=== PATIENT | female | born 1965 | race Hispanic/Latino ===

== ENCOUNTER 2020-01-25 19:03 | Inpatient (IN) | payer OTHER, SELFPAY ==
--- NOTE | ~2020-01-25 | XR_ITS ---
EXAMINATION: XR chest 1V portable DATE: 01/25/2020 21:25 INDICATION: Fever TECHNIQUE: frontal view of the chest was obtained. COMPARISON: None FINDINGS: Patchy airspace opacities throughout both lungs with lower lung predominance. Linear discoid atelecta sis in the left upper lung zone. No pleural effusion or pneumothorax. Mild cardiomegaly. IMPRESSION: 1. Bilateral lower lung predominant patchy airspace opacities which could represent pneumonia, pulmon grant edema, atelectasis or some combination thereof. 2. Mild cardiomegaly. Reviewed, dictated and finalized at location A. IMPRESSION: 1. Bilateral lower lung predominant patchy airspace opacities which could repre sent pneumonia, pulmonary edema, atelectasis or some combination thereof. 2. Mild cardiomegaly.
--- NOTE | ~2020-01-25 | CT_ITS ---
EXAMINATION: CT abdomen pelvis w con DATE: 01/25/2020 21:28 INDICATION: Abdominal pain and fever TECHNIQUE: Computed tomography (CT) of the abdomen and pelvis was performed with 100 mL Omnipaque-350 intravenous contrast. Automated exposure control and iterative reconstruction technique were employe d. The dose-length product was 343.45 mGy-cm. COMPARISON: None FINDINGS: Patchy groundglass opacities at the bilateral lung bases which could represent pneumonia or pulmonary edema. Bronchiectasis and mild discoid atelectasis in the posterior right middle lobe along the wilberto r fissure. Mild cardiomegaly. No pericardial or pleural effusion. 1.4 cm cyst at the dome of the live r and second 8 mm cyst at the right hepatic lobe. Gallbladder, spleen, pancreas, bilateral adrenal gl ands and kidneys are normal. Bowels including the appendix are normal. Bladder, retroverted, retrofle xed uterus are normal. 2.8 cm likely cystic lesion at the left adnexa with greater than simple fluid attenuation. No free intraperitoneal gas or fluid. No pathologically enlarged abdominal or pelvic lym phadenopathy. Mild scattered degenerative skeletal changes. IMPRESSION: 1. Patchy groundglass opacities in the bilateral lower lungs which could represent pneumonia includin g atypical pneumonia such as COVID-19 or pulmonary edema. 2. Mild cardiomegaly. 3. Indeterminate 2.8 cm likely cystic lesion at the left adnexa with slightly greater than simple flu id attenuation possibly hemorrhagic cyst. Recommend pelvic ultrasound for further evaluation. Reviewed, dictated and finalized at location A. IMPRESSION: 1. Patchy groundglass opacities in the bilateral lower lungs which could repres ent pneumonia including atypical pneumonia such as COVID-19 or pulmonary edema. 2. Mild cardiomegaly. 3. Indeterminate 2.8 cm likely cystic lesion at the left adnexa with slightly g reater than simple fluid attenuation possibly hemorrhagic cyst. Recommend pelvi c ultrasound for further evaluation.
[2020-01-25 19:13] VITALS: BP 122/79; PULSE 83; RESP 33; TEMP 37.9; O2SAT 97
--- NOTE | 2020-01-25 19:20 | ED.FEVER ---
HPI - Fever General Chief Complaint: Fever Stated Complaint: fever Time Seen by Provider: 01/25/20 19:20 History of Present Illness HPI Narrative: Low Grade fever for the past week. Associated with diarrhea and diffuse abdominal pain. No nausea, vomiting, dark stool, cough, congestion, chest pain, SOB. She has never had this before. No active medical problems, No prior abdominal surgery. History somewhat limited by language barrier. Related Data Home Medications Medication Instructions Recorded Confirmed No Home Medications 01/25/20 01/25/20 Allergies Allergy/AdvReac Type Severity Reaction Status Date / Time No Known Allergies Allergy Verified 01/25/20 19:47 Review of Systems Review of Systems: All systems reviewed & are unremarkable except as noted in HPI and below Constitutional: Constitutional: Reports fever(s) ENT: Denies sore throat Cardiovascular: Cardiovascular: Denies chest pain Respiratory: Respiratory: Denies cough, Denies dyspnea and Denies wheezing Gastrointestinal: Gastrointestinal: Reports abdominal pain, Reports diarrhea and Denies vomiting Genitourinary: Genitourinary: Denies hematuria, Denies nocturia and Denies dysuria Integumentary/Breasts: Skin/Breast: Denies rash Neurologic: Denies dizziness and Denies weakness Endocrine: Endocrine: Denies polydipsia and Denies polyuria REPLACED BY [facility] Social History Social History (Updated 01/25/20 @ 20:20 by Estuardo Saab MD) Smoking status: Never smoker Exam Const: General: no acute distress, alert and ill appearing Orientation/consciousness: patient oriented x3 HENMT: Head: normal to inspection Neck: Neck: normal visual inspection and no lymphadenopathy Chest: Chest palpation & inspection: no tenderness Resp: Effort & Inspection: normal respiratory effort and tachypneic Auscultation: crackles bilateral Cardio: Jugular venous distension: no JVD Rate: regular rate Rhythm: regular rhythm Heart sounds: no murmurs GI: Inspection: non-distended GI Palp: Yes Soft to palpation, Yes Tenderness to palpation present (GI) (diffuse), No Guarding due to palpation present (GI) and No Rebound tenderness present Skin: General skin exam: normal color Neuro: General: patient oriented x3, moves all extremities and CN's II-XI intact bilaterally Speech: normal speech Extrem: General: no edema Psych: Appearance: well kempt Affect: normal affect Course Vital Signs Vital signs: Vital Signs Temperature 37.9 C H 01/25/20 19:13 Pulse Rate 83 01/25/20 19:13 Respiratory Rate 33 H 01/25/20 19:13 Blood Pressure 122/79 01/25/20 19:13 Pulse Oximetry 97 01/25/20 19:13 Temperature 37.1 C 01/25/20 21:42 Pulse Rate 75 01/25/20 21:42 Respiratory Rate 24 H 01/25/20 21:42 Blood Pressure 112/65 01/25/20 21:42 Pulse Oximetry 97 01/25/20 21:42 MDM - Fever MDM Narrative Medical decision making narrative: Story and imaging concerning for COVID-19. She appears ill and is at risk of decompensating quickly. I will plan to admit for observation. Differential Diagnosis Differential diagnosis: Likely gastroenteritis, community acquired pneumonia, pyelonephritis and other (COVID-19, UTI) Medical Records Attestation: I reviewed the patient's medical records. Lab Data Attestation: I reviewed the patient's lab results. Result diagrams: 01/25/20 19:47 01/25/20 19:46 Labs: Lab Results 01/25/20 01/25/20 01/25/20 Range/Units 19:46 19:46 19:47 WBC 5.7 (4.5-10.0) K/mm3 RBC 4.67 (4.2-5.4) M/mm3 Hgb 13.4 (12.0-15.0) g/dL Hct 39.7 (37.0-47.0) % MCV 85.0 (80-100) fl MCH 28.7 (26-34) pg MCHC 33.8 (32-36) g/dl RDW 13.0 (11.5-14.5) % Plt Count 127 L (150-375) k/mm3 MPV 12.4 H (7.4-10.4) fl Immature Gran % (Auto) 0.3 (0-0.5) % Neut % (Auto) 85.7 H (45.5-73.1) % Lymph % (Auto) 11.9 L (18.3-44.2) % [place] % (Auto) 1.9 L (2.6-8.5) %
[2020-01-25] MEDS: SODIUM CHLORIDE 0.9% IV 1,000 ML 999 ML IV CONT (19:48)
[2020-01-25 20:00] LABS: Basophils Percent Auto 0.2 % (0.2-1.2); Hematocrit 39.7 % (37.0-47.0); Hemoglobin 13.4 g/dL (12.0-15.0); Immature Granulocyte Absolute 0.02 K/mm3 (0.00-0.031); Immature Granulocyte Percent A 0.3 % (0-0.5); Immature Platelet Fraction Pct 11.3 % (0.9-11.2); Lymphocytes Absolute Auto 0.68 K/mm3 (0.9-3.2); Lymphocytes Percent Auto 11.9 % (18.3-44.2); Mean Corpuscular HGB Conc 33.8 g/dl (32-36); Mean Corpuscular Hemoglobin 28.7 pg (26-34); Mean Platelet Volume 12.4 fl (7.4-10.4); Monocytes Absolute Auto 0.1 K/mm3 (0.1-0.6); Monocytes Percent Auto 1.9 % (2.6-8.5); Neutrophils Absolute Auto 4.9 K/mm3 (1.3-6.7); Neutrophils Percent Auto 85.7 % (45.5-73.1); Platelet Count Result 127 k/mm3 (150-375); Red Blood Count 4.67 M/mm3 (4.2-5.4); White Blood Count 5.7 K/mm3 (4.5-10.0)
[2020-01-25 20:06] LABS: INR 1.1; Prothrombin Time 13.9 Seconds (11.1-14.7)
[2020-01-25 20:07] LABS: Partial Thromboplastin Time 41.2 SECONDS (22.3-36.8)
[2020-01-25 20:09] LABS: Lactic Acid Reflex 0.6 mmol/L (0.7-2.1)
[2020-01-25 20:13] LABS: Alanine Aminotransferase 20 U/L (4-35); Albumin Level 4.1 g/dL (3.5-5.1); Alkaline Phosphatase 80 U/L (38-126); Aspartate Amino Transferase 48 U/L (14-36); Bilirubin,Total 0.4 mg/dL (0.2-1.3); Blood Urea Nitrogen 8 mg/dL (7-17); CRP 4.1 mg/dL (<1.0); Carbon Dioxide 25 mmol/L (22-30); Chloride 102 mmol/L (98-107); Estimated CRCL calculation 75 ml/min; Estimated Glomerular Filt Rate > 60; Glucose 117 mg/dL (65-105); Lipase 101 U/L (23-300); Potassium 3.7 mmol/L (3.4-5.0); Sodium 136 mmol/L (137-145)
[2020-01-25 20:32] VITALS: BP 114/67; PULSE 75; RESP 20; O2SAT 100
[2020-01-25 20:45] VITALS: TEMP 37.2
[2020-01-25 21:00] LABS: Add Urine Microscopic? YES; Appearance Urine Clear (Clear); Bacteria Urine Trace /hpf; Bilirubin Urine Negative (Negative); Blood Urine Negative (Negative); Color Urine Yellow (Yellow); Glucose Urine UA Negative (Negative); Ketones Urine Trace mg/dL (Negative); Leukocyte Esterase Ur Negative LEU/UL (Negative); Mucus Urine Rare /lpf; Nitrate Urine Negative (Negative); Protein Urine Negative (Negative); RBC Urine 0-2 /hpf (0-2); Specific Grav Ur 1.016 (1.001-1.035); Squamous Epithelial Cell Urine Rare /hpf (Few); WBC Urine 0-3 /hpf
[2020-01-25 21:42] VITALS: BP 112/65; PULSE 75; RESP 24; TEMP 37.1; O2SAT 97
[2020-01-25 22:58] VITALS: BP 106/70; PULSE 75; RESP 20; O2SAT 99
--- NOTE | 2020-01-25 23:35 | ADMGEN ---
This patient, Jerome Wu, was admitted to [facility] Room 327-01. Patient/family oriented to hospital policies and general routines including ID bracelet, bed and alarms, visiting hours, pain management, procedures, bathroom and other care routines, personal items, smoking policy, room service/diet, and visiting hours. Valuables list has been completed. Information on how to activate the Rapid Response Team has been discussed. Patient/Family are encouraged to report perceived risks to care and to ask questions if they do not understand what they are told or what they should do.
[2020-01-25 23:42] VITALS: BP 102/71; PULSE 73; RESP 18; TEMP 36.7; O2SAT 97; BMI 22.7
[2020-01-25] MEDS: LACTATED RINGERS 1,000 ML 75 ML IV CONT (23:58)
[2020-01-26] VITALS (17 sets, daily range): BP systolic 97–121; BP diastolic 61–67; PULSE 70–86; RESP 16–28; TEMP 36.8–38.8; O2SAT 91–96
--- NOTE | 2020-01-26 01:50 | ECG_ITS ---
Measurements Intervals [place] Rate: 73 P: 1 IA: 141 QRS: 16 QRSD: 94 T: 15 QT: 369 QTc: 407 Interpretive Statements SINUS RHYTHM BASELINE WANDER- V6 NORMAL ECG Electronically Signed On 01-26-2020 7:02:05 CDT by Fam Monzon D.O.
[2020-01-26 06:48] LABS: Hematocrit 38.5 % (37.0-47.0); Hemoglobin 13.2 g/dL (12.0-15.0); Mean Corpuscular HGB Conc 34.3 g/dl (32-36); Mean Corpuscular Hemoglobin 28.6 pg (26-34); Mean Corpuscular Volume 83.5 fl (80-100); Platelet Count Result 155 k/mm3 (150-375); Red Blood Count 4.61 M/mm3 (4.2-5.4); White Blood Count 5.6 K/mm3 (4.5-10.0)
[2020-01-26 07:07] LABS: Blood Urea Nitrogen 4 mg/dL (7-17); CRP 5.5 mg/dL (<1.0); Carbon Dioxide 25 mmol/L (22-30); Chloride 102 mmol/L (98-107); Estimated CRCL calculation 110 ml/min; Estimated Glomerular Filt Rate > 60; Glucose 101 mg/dL (65-105); Lactate Dehydrogenase 930 U/L (313-618); Potassium 3.8 mmol/L (3.4-5.0); Sodium 134 mmol/L (137-145)
[2020-01-26] MEDS: ACETAMINOPHEN 325 MG TABLET 650 MG PO ×2 (07:10→15:52)
--- NOTE | 2020-01-26 07:56 | PM.IMHP ---
H&P: HPI History of Present Illness Chief complaint: Fever, diarrhea and body aches Narrative: Date and time of patient contact:01/26/2020 at 6:30 a.m. Jerome Wu is a 54 year old [place]-speaking female with no significant past medical history (per patient report) who presented to the ER of subjective fevers, chills, diarrhea, and ?a headache and ache all over her body.? The patient had been having some nausea and decreased appetite. She denies any loss of taste or smell. She has not had any cough, congestion, or shortness of breath. She has not been having any chest pain. He has not had any lower extremity swelling, dysuria, hematuria, hematochezia or melena. She has been having several loose stools in a. She reports that PE the IV fluids she has received since admission if made her feel a little bit better. She denies any known ill contacts with COVID-19. Review of Systems Review of Systems: Narrative: 12 systems were reviewed with pertinent positives and negatives per HPI. Except as documented in the HPI, all other systems were reviewed and are negative. [facility] Past Medical History Medical History (Updated 01/26/20 @ 08:11 by Sara Stroud DO) No active medical problems Surgical History Surgical History (Updated 01/26/20 @ 08:11 by Sara Stroud DO) No significant past surgical history Family History Family History (Updated 01/26/20 @ 08:13 by Sara Stroud DO) Other No significant family history Social History Social History (Updated 01/25/20 @ 20:20 by Estuardo Saab MD) Smoking status: Never smoker Alcohol intake: never Substance use: never Gender identity (if verbalized by the patient): Female Sexual Orientation (if Verbalized by the Patient): Straight or Heterosexual Spiritual care concerns: No Meds Home Medications and Allergies Home Medications Medication Instructions Recorded Confirmed Type No Home Medications 01/25/20 01/25/20 History Allergies Allergy/AdvReac Type Severity Reaction Status Date / Time No Known Allergies Allergy Verified 01/25/20 19:47 Vital Signs Vital Signs - 24 hr 01/25/20 19:13 01/25/20 20:32 01/25/20 20:45 Temperature 100.2 F H 98.9 F Pulse Rate 83 75 Respiratory Rate 33 H 20 Blood Pressure 122/79 114/67 Pulse Oximetry 97 100 01/25/20 21:42 01/25/20 22:58 01/25/20 23:42 Temperature 98.8 F 98.1 F Pulse Rate 75 75 73 Respiratory Rate 24 H 20 18 Blood Pressure 112/65 106/70 102/71 Pulse Oximetry 97 99 97 01/26/20 00:00 01/26/20 02:00 01/26/20 02:46 Temperature 98.5 F Pulse Rate 72 70 Respiratory Rate 18 Blood Pressure 103/61 Pulse Oximetry 96 96 01/26/20 04:00 01/26/20 06:00 01/26/20 07:10 Temperature 101.9 F H 101.9 F H Pulse Rate 78 81 Respiratory Rate 18 Blood Pressure 121/61 Pulse Oximetry 96 Exam Narrative: Exam Narrative: PHYSICAL EXAM: WEIGHT 60.1 kg BMI 22.7 General: No acute distress, appears older than stated age HEENT: Edentulous, no oral pharyngeal erythema, pupils are equal and reactive, head is normocephalic atraumatic Neck: No significant lymphadenopathy or JVD, trachea midline Respiratory: no increased work of breathing, equal breath sounds Cardiovascular: Normal S1-S2, no murmur, regular rate and rhythm Gastrointestinal: Soft, nontender, nondistended, positive bowel sounds Skin: No jaundice, no pallor, hot to touch Extremities: No clubbing, cyanosis or edema Neurological: Alert and oriented, speech is clear, no facial asymmetry Psychiatric: Flat affect, pleasant and cooperative H&P: Results Labs Labs: Laboratory Tests 01/26/20 06:40 01/26/20 06:40 01/25/20 01/25/20 01/25/20 19:46 19:46 19:47 WBC 5.7 RBC 4.67 Hgb 13.4 Hct 39.7 MCV 85.0 MCH 28.7 MCHC 33.8 RDW 13.0 Plt Count 127 L MPV 12.4 H Immature Gran % (Auto) 0.3 Neut % (Auto) 85.7 H Lymph % (Auto) 11.9 L Mo
[2020-01-26] MEDS: ENOXAPARIN 40 MG/0.4 ML SYRINGE SUB-Q (09:38)
[2020-01-26 14:14] LABS: SARS-CoV-2 RNA PCR Positive
--- NOTE | 2020-01-26 16:27 | PM.IMPN ---
Progress Note: A&P Assessment and Plan (1) Suspected COVID-19 virus infection: Code(s): Z20.828 - Contact with and (suspected) exposure to other viral communicable diseases Status: Acute Assessment and Plan: SARS-COV2 testing was positive. Continue droplet/airborne precautions. She is stable on room air with oxygen saturation of 94-100%. She has no complaints of dyspnea. Tmax was 101.9 early today. Temp this afternoon was 100.4F. She does endorse headache and myalgias. Continue to monitor pulse oximetry. Continue supplemental oxygen as needed to achieve a pulse oxygen saturation of 92%. Continue tylenol PRN fever and pain. Continue to monitor acute phase reactants. (2) Pneumonia: Qualifiers: Laterality: bilateral Lung location: unspecified part of lung Pneumonia type: due to unspecified organism Qualified Code(s): J18.9 - Pneumonia, unspecified organism Code(s): J18.9 - Pneumonia, unspecified organism Status: Acute Assessment and Plan: Secondary to COVID-19. Plan to discontinue antibiotics. Continue supportive care as above. Blood cultures were obtained and are pending. (3) DVT prophylaxis: Code(s): Z29.9 - Encounter for prophylactic measures, unspecified Status: Acute Assessment and Plan: Continue lovenox. (4) Adnexal cyst: Code(s): N94.9 - Unspecified condition associated with female genital organs and menstrual cycle Status: Acute Assessment and Plan: CT abd/pelvis revealed a 2.8cm cystic lesion which may represent a hemorrhagic cyst. She will need a pelvic ultrasound once she has recovered from her acute illness. (5) Subcutaneous nodule of neck: Code(s): R22.1 - Localized swelling, mass and lump, neck Status: Acute Assessment and Plan: The patient reports a subcutaneous nodule on the right neck which she has had for many years. She will need further evaluation with an ultrasound outpatient once she has recovered from her acute illness. Time Spent With Patient Time with patient: 15 - 25 minutes Subjective Date/time seen: 01/26/20 16:27 Interval history: Mrs. Wu is seen and examined at beside in follow-up for a COVID-19 infection. She is seen in conjugation with interpretative services as she is [place]-speaking. She reports that she continues to have headaches and diffuse myalgias. Her sx are relieved significantly with tylenol. She also reports chills. She denies dyspnea and states that she feels completely fine from a respiratory standpoint. She denies chest pain and palpitations. She reports that her diarrhea has resolved. She denies nausea and vomiting. She notes a small soft tissue swelling in the neck that she has had for many years. She has no other complaints at this time. Review of Systems Review of Systems: All systems reviewed & are unremarkable except as noted in HPI and below Exam Narrative: Exam Narrative: General: Pleasant 54 y.o. female who appears older than her stated age lying supine in bed resting and in no acute distress. HEENT: Normocephalic and atraumatic. Conjunctivae and lids normal. EOMI. Mucous membranes moist. Posterior pharynx without erythema or exudate. Neck: Very small <1x1cm subcutaneous nodule on the right anterior neck. No other lymphadenomathy aprpeciated. Cardiac: Regular rate and rhythm. S1 and S2 normal. Telemetry was reviewed from 01/25 with sinus rhythm and occasional PVCs. Lungs: Effort normal. Respirations are unlabored. Diffuse rales to the lungs bilaterally. No wheezes. Abdomen: Bowel sounds are normoactive. Abdomen is soft, non-distended, and non-tender. Extremities: No lower extremity edema. Rajesh sign negative. Palpable DP and PT bilaterally. Neurological: Alert. No focal neurological deficits noted. Speech is clear. Skin: Warm and dry. Psychiatric: Judgment and insight intact. Mood pleasant and affect normal. Objective Data Vital Signs Miya
[2020-01-27] VITALS (11 sets, daily range): BP systolic 98–104; BP diastolic 47–56; PULSE 67–82; RESP 16–20; TEMP 36.9–37.8; O2SAT 93–95
[2020-01-27] MEDS: ACETAMINOPHEN 325 MG TABLET 650 MG PO ×2 (02:26→16:05)
[2020-01-27 06:37] LABS: Hematocrit 40.7 % (37.0-47.0); Hemoglobin 13.7 g/dL (12.0-15.0); Mean Corpuscular HGB Conc 33.7 g/dl (32-36); Mean Corpuscular Hemoglobin 28.7 pg (26-34); Mean Corpuscular Volume 85.1 fl (80-100); Mean Platelet Volume 12.1 fl (7.4-10.4); Platelet Count Result 110 k/mm3 (150-375); Red Blood Count 4.78 M/mm3 (4.2-5.4); Red Cell Distribution Width 12.8 % (11.5-14.5); White Blood Count 5.1 K/mm3 (4.5-10.0)
[2020-01-27 06:51] LABS: Potassium 3.7 mmol/L (3.4-5.0)
[2020-01-27 06:55] LABS: Alanine Aminotransferase 22 U/L (4-35); Albumin Level 3.9 g/dL (3.5-5.1); Alkaline Phosphatase 78 U/L (38-126); Aspartate Amino Transferase 44 U/L (14-36); Bilirubin,Total 0.4 mg/dL (0.2-1.3); Blood Urea Nitrogen 8 mg/dL (7-17); CRP 6.1 mg/dL (<1.0); Calcium 8.4 mg/dL (8.4-10.2); Carbon Dioxide 25 mmol/L (22-30); Chloride 101 mmol/L (98-107); Estimated CRCL calculation 90 ml/min; Estimated Glomerular Filt Rate > 60; Glucose 96 mg/dL (65-105); Lactate Dehydrogenase 929 U/L (313-618); Sodium 135 mmol/L (137-145)
[2020-01-27] MEDS: ENOXAPARIN 40 MG/0.4 ML SYRINGE SUB-Q (09:00)
--- NOTE | 2020-01-27 14:40 | PM.DS ---
DS: Admitting Diagnosis Admitting Diagnosis Admitting Diagnosis: Contact with and (suspected) exposure to other viral communicable diseases DS: Discharge Diagnosis Discharge Diagnosis (1) COVID-19: Code(s): U07.1 - COVID-19 Status: Acute (2) Pneumonia: Qualifiers: Laterality: bilateral Lung location: unspecified part of lung Pneumonia type: due to unspecified organism Qualified Code(s): J18.9 - Pneumonia, unspecified organism Code(s): J18.9 - Pneumonia, unspecified organism Status: Acute (3) Adnexal cyst: Code(s): N94.9 - Unspecified condition associated with female genital organs and menstrual cycle Status: Acute Assessment and Plan: CT abd/pelvis revealed a 2.8cm cystic lesion which may represent a hemorrhagic cyst. She will need a pelvic ultrasound once she has recovered from her acute illness. She was given an order for this and advised to establish care with a PCP. CA-125 was ordered and was not elevated. (4) Subcutaneous nodule of neck: Code(s): R22.1 - Localized swelling, mass and lump, neck Status: Acute Assessment and Plan: The patient reports a subcutaneous nodule on the right neck which she has had for many years. She will need further evaluation with an ultrasound outpatient once she has recovered from her acute illness. She was provided with an order and was instructed to establish care with a PCP. DS: Summary Hospital Course Reason for hospitalization: Fever, diarrhea, and body aches Hospital Course: Mrs. Wu is a 54 y.o. Thai-speaking female with no significant past medical history who presented to the emergency department 01/25/20 for the evaluation of a low grade fever, diarrhea, diffuse abdominal discomfort, headache, and myalgia. Initial workup included CXR which revealed bilateral lower lung patchy airspace opacities and mild cardiomegaly. CT abd/pelvis revealed patchy groundglass opacities in the lower lungs, mild cardiomegaly, and a 2.8cm cystic lesion at the left adnexa with slightly greater than simple fluid attenuation. Pelvic ultrasound was recommended. CA-125 was performed and was not elevated EKG revealed sinus rhythm. CRP was elevated at 4.1. WBC was normal. AST was slightly elevated at 48. Lipase was normal. She was tested for COVID-19. She was admitted to the medical floor under droplet/airborne isolation per protocol. She was treated with empiric IV azithromycin and rocephin. Blood cultures were obtained. COVID-19 testing was positive. She remained stable on room air and did not develop hypoxia. She did have fevers with Tmax of 101.9F. Her fever improved. Her diarrhea, myalgias, and headaches resolved and she was feeling much better. She requested to go home. She is not currently established with a primary care provider and I discussed that this was very important for her to establish care. I discussed that she will need a pelvic ultrasound and soft tissue neck ultrasound. She asked for a referral so she was referred to Dr. Mata who was customer service sales consultant when she presented to the ED. I called and spoke with Dr. Mata about the referral and further workup needed. She may need echo outpatient as her CXR revealed mild cardiomegaly. She had no complaints of dyspnea, chest pain, edema, PND, or orthopnea. She verbalized understanding of the need for further outpatient workup. She was discharged in stable condition on the afternoon of 01/27/20. Status at Discharge Functional status at discharge: independent ambulation Overall status at discharge: patient is back to baseline Time Spent with Patient Time attestation: Total time spent providing and/or coordinating discharge services: 40 minutes Exam Narrative: Exam Narrative: Vitals at presentation: Temp Pulse Resp BP Pulse Ox 100.2 F H 83 33 H 122/79 97 01/25/20 19:
[2020-01-30 03:19] LABS: CA-125 8 U/mL (<35)
== END 2020-01-27 17:00 | disposition home or self-care (01) | DRG 137 ==
LOC: ANHED 22:06 → ANH3MEDSUR 22:34
PROVIDERS: Physician Assistant; Admitting Provider Internal Medicine; Emergency Provider Emergency Medicine; Visit Provider Internal Medicine
DX: U07.1 COVID-19 (principal); J12.89 Other viral pneumonia; N94.9 Unspecified condition associated with female genital organs and menstrual cycle; R22.1 Localized swelling, mass and lump, neck
CPT/HCPCS: 36415; 71045; 74177; 80048; 80053; 81001; 82728; 83605; 83615; 83690; 85025; 85027; 85055; 85380; 85610; 85730; 86140; 86304; 87040; 87635; 93005; 96365; 96367; 96368; 96372; 99285; A9270; C9803; G0378; G0379; J0131; J0456; J0696; J1650; J7030; J7120; Q9967; U0003